=== PATIENT | male | born 1995 | race Caucasian/White ===

== ENCOUNTER 2016-12-17 11:59 | Emergency (ER) | payer OTHER ==
[~2016-12-17] VITALS: Ht 180.3 cm; Wt 65.0 kg
[~2016-12-17 11:59] MED LIST: CEPH500C3 PO
[2016-12-17 12:14] VITALS: BP 114/66; PULSE 63; RESP 16; TEMP 97.7; O2SAT 100
--- NOTE | 2016-12-17 12:32 | PD ---
HPI Chief Complaint: Psychiatric Symptoms Time Seen by Provider: 12:16 Travel History International Travel<30 days: No Contact w/Intl Traveler<30days: No Traveled to known affect area: No History of Present Illness HPI 21-year-old male presents to the emergency room under a Galan act initiated by Police Department. According to galan act, patient texted his girlfriend stating that she would be better off if he was not around. Patient states he meant that she would be better off if he did not see her, not if he was . Denies any suicidal or homicidal ideations. States he found out she was cheating on him and got depressed and angry. She called 911 from the boy's house that she was cheating on him with to have him Galan acted because she did not want to see him. Patient states it was a miscommunication and he just wants " to go to work, make money, and see my kids." Denies hallucinations or delusions. Denies any medical complaints. States he otherwise feels well. Denies alcohol and illicit drug use. Admits to smoking cigarettes. He has medical conditions or daily medications. [facility] Past Medical History Medical History: Denies Significant Hx Social History Alcohol Use: Yes (OCC) Tobacco Use: Yes (02/21 PPD) Substance Use: Yes (POT) Allergies-Medications (Allergen,Severity, Reaction): Coded Allergies: No Known Allergies (Unverified Adverse Reaction, Unknown, 12/17/16) Reported Meds & Prescriptions Reported Meds & Active Scripts Active Review of Systems Except as stated in HPI: all other systems reviewed are Neg Physical Exam Narrative GENERAL: Well-nourished, well-developed male in no acute distress. Afebrile. Ambulatory. SKIN: Focused skin assessment warm/dry. HEAD: Normocephalic. EYES: No scleral icterus. No injection or drainage. NECK: Supple, trachea midline. No JVD or lymphadenopathy. CARDIOVASCULAR: Regular rate and rhythm without murmurs, gallops, or rubs. RESPIRATORY: Breath sounds equal bilaterally. No accessory muscle use. PSYCHIATRIC: No delusional thought processes. No hallucinations. Normal affect. Good mood. Smiling. Data Data Last Documented VS Vital Signs Date Time Temp Pulse Resp B/P (MAP) Pulse Ox O2 Delivery O2 Flow Rate FiO2 12/17/16 12:14 97.7 63 16 114/66 (82) 100 Room Air MDM Medical Decision Making Medical Screen Exam Complete: Yes Emergency Medical Condition: Yes Medical Record Reviewed: Yes Differential Diagnosis Inappropriate Galan act, depression, anxiety, stress, drug-induced mood disorder Narrative Course 21-year-old male presents to the emergency room under Galan act initiated by [employer]. Patient states he has a girlfriend her fighting because she is cheating on him. States he made a text to her that she took to mean that he was suicidal and called 911. States it was a miscommunication that the police department took too far. Patient adamantly denies suicidal or homicidal ideations. States he was initially depressed and angry that she was cheating on him but now feels well and just wants to go to work, make money, and see his kids. Patient is interacting appropriately, smiling. He has a good mood and normal affect. He has no physical manifestations of depression. He is vito to safety. He has never been to the ED before for psych evaluation. Denies any chronic medical conditions, daily medications, or medical complaints. I believe patient was inappropriately Galan acted. I spoke to my attending physician, Dr. Aparicio, who agrees to lift his Galan act. Patient is grateful and would like to leave. He was told to follow up immediately for any thoughts of suicidal or homicidal ideation. He understands and agrees to plan. Diagnosis Primary Impression: Psychiatric exam requested by authority Referrals: Primary Care Physician Additional Instructions: Return immediately to the emergency room for any thoughts of harming self or others. Scripts No Active Prescriptions or Reported Meds Disposition: 01 DISCHARGE HOME Condition: Stable Cori Olvera Dec 17, 2016 12:32
--- NOTE | 2016-12-17 12:35 | PD ---
Physical Exam Date Seen by Provider: Dec 17, 2016 Narrative Galan Act Data Data Last Documented VS Vital Signs Date Time Temp Pulse Resp B/P (MAP) Pulse Ox O2 Delivery O2 Flow Rate FiO2 12/17/16 12:14 97.7 63 16 114/66 (82) 100 Room Air Orders Orders Ed Discharge Order (12/17/16 12:32) MDM Supervised Visit with ANA: Yes Narrative Course I, Dr. Aparicio, have reviewed the advance practice practitioner's documentation and am in agreement, met with the patient face to face, made the diagnosis, and the medical decision making was done by me. *My assessment and Findings: This patient is smiling. He states that he needs to go to work. He is looking for to interacting with his child. He is not suicidal. The Galan Act has been lifted. Please see Cori Olvera PA-C's note for results of laboratory and radiographic evaluation, ED course, final diagnosis and disposition Diagnosis Primary Impression: Psychiatric exam requested by authority Referrals: Primary Care Physician Additional Instruction: Return immediately to the emergency room for any thoughts of harming self or others. Scripts No Active Prescriptions or Reported Meds Disposition: 01 DISCHARGE HOME Condition: Stable Ale Aparicio MD Dec 17, 2016 12:35
== END 2016-12-17 12:47 | disposition home or self-care (01) ==
LOC: NEPD 11:59
DX: Z00.8 Encounter for other general examination (principal); F32.9 Major depressive disorder, single episode, unspecified; F17.210 Nicotine dependence, cigarettes, uncomplicated
CPT/HCPCS: 99282

== ENCOUNTER 2017-01-01 22:43 | Emergency (ER) | payer SELFPAY ==
[~2017-01-01] VITALS: Ht 180.3 cm; Wt 65.0 kg
[2017-01-01 22:46] VITALS: BP 110/54; PULSE 72; RESP 16; TEMP 98.1; O2SAT 100
--- NOTE | 2017-01-02 01:17 | PD ---
HPI Chief Complaint: Psychiatric Symptoms Time Seen by Provider: 01:15 Travel History International Travel<30 days: No Contact w/Intl Traveler<30days: No Traveled to known affect area: No History of Present Illness HPI Patient comes in requesting psychiatric evaluation for suicidal ideations. Patient denies any plans currently, but states he was having thoughts of suicide. Patient reports history of suicide attempt by hanging himself that occurred 1 year ago. Patient denies any other medical complaints or concerns. Denies any chest pain, shortness of breath, headaches, fevers, abdominal pain, loss or change in bowel or bladder, or fevers. Denies anything making symptoms better or worse. PFSH Past Medical History Medical History: Denies Significant Hx Diminished Hearing: No Immunizations Current: Yes Social History Alcohol Use: Yes (OCC) Tobacco Use: Yes (1/2 PPD) Substance Use: Yes (POT) Allergies-Medications (Allergen,Severity, Reaction): Coded Allergies: No Known Allergies (Unverified Adverse Reaction, Unknown, 01/01/17) Reported Meds & Prescriptions Reported Meds & Active Scripts Active No Active Prescriptions or Reported Medications Review of Systems Except as stated in HPI: all other systems reviewed are Neg Physical Exam Narrative GENERAL: Well-developed, well nourished, in no acute distress, and non-ill appearing. Smiling and cheerful on exam. SKIN: Focused skin assessment warm and dry. HEAD: Atraumatic. Normocephalic. EYES: Pupils equal and round. EOMI. No scleral icterus. No injection or drainage. ENT: No nasal bleeding or discharge. Mucous membranes pink and moist. NECK: Trachea midline. Supple. No nuclear rigidity. CARDIOVASCULAR: Regular rate and rhythm. No murmur appreciated. RESPIRATORY: No accessory muscle use. No respiratory distress. Clear to auscultation. Breath sounds equal bilaterally. MUSCULOSKELETAL: No obvious deformities. No clubbing. No cyanosis. No edema. Full range of motion. NEUROLOGICAL: Awake and alert. No obvious cranial nerve deficits. Motor grossly within normal limits. Normal speech. PSYCHIATRIC: Appropriate mood and affect; insight and judgment normal. Data Data Last Documented VS Vital Signs Date Time Temp Pulse Resp B/P (MAP) Pulse Ox O2 Delivery O2 Flow Rate FiO2 01/01/17 22:46 98.1 72 16 110/54 (72) 100 Orders Orders Complete Blood Count With Diff (01/02/17 01:07) Comprehensive Metabolic Panel (01/02/17 01:07) Psych Screen (01/02/17 01:07) Drug Screen, Random Urine (01/02/17 01:07) Alcohol (Ethanol) (01/02/17 01:07) Salicylates (Aspirin) (01/02/17 01:07) Tylenol (Acetaminophen) (01/02/17 01:07) Labs Laboratory Tests Test 01/02/17 01:40 White Blood Count 8.9 TH/MM3 Red Blood Count 4.31 MIL/MM3 Hemoglobin 13.1 GM/DL Hematocrit 38.0 % Mean Corpuscular Volume 88.0 FL Mean Corpuscular Hemoglobin 30.4 PG Mean Corpuscular Hemoglobin Concent 34.6 % Red Cell Distribution Width 14.0 % Platelet Count 228 TH/MM3 Mean Platelet Volume 7.3 FL Neutrophils (%) (Auto) 50.3 % Lymphocytes (%) (Auto) 34.5 % Monocytes (%) (Auto) 11.7 % Eosinophils (%) (Auto) 2.8 % Basophils (%) (Auto) 0.7 % Neutrophils # (Auto) 4.4 TH/MM3 Lymphocytes # (Auto) 3.1 TH/MM3 Monocytes # (Auto) 1.0 TH/MM3 Eosinophils # (Auto) 0.2 TH/MM3 Basophils # (Auto) 0.1 TH/MM3 CBC Comment DIFF FINAL Differential Comment Blood Urea Nitrogen 12 MG/DL Creatinine 0.88 MG/DL Random Glucose 94 MG/DL Total Protein 6.2 GM/DL Albumin 3.5 GM/DL Calcium Level 8.4 MG/DL Alkaline Phosphatase 57 U/L Aspartate Amino Transf (AST/SGOT) 17 U/L Alanine Aminotransferase (ALT/SGPT) 24 U/L Total Bilirubin 0.5 MG/DL Sodium Level 140 MEQ/L Potassium Level 3.8 MEQ/L Chloride Level 107 MEQ/L Carbon Dioxide Level 24.2 MEQ/L Anion Gap 9 MEQ/L Estimat Glomerular Filtration Rate 109 ML/MIN Salicylates Level 3.4 MG/DL Acetaminophen Level LESS THAN 2.0 MCG/ML Ethyl Alcohol Level LESS THAN 3 MG/DL MDM Medical Decision Making Medical Screen Exam Complete: Yes Emergency Medical Condition: Yes Differential Diagnosis Homicidal, suicidal, homeless, metabolic disturbance, substance abuse, alcohol intoxication, other Narrative Course Patient was seen and examined. Labs were obtained and reviewed with the exception of urine drug screen has not been collected yet. Patient medically cleared for further treatment and evaluation by psych. Final disposition per psych. Diagnosis Primary Impression: Medical clearance for psychiatric admission Scripts No Active Prescriptions or Reported Meds Condition: Sarmad Garzon Jan 02, 2017 01:17
[2017-01-02 02:02] LABS: AUTOMATED NEUTROPHIL # 4.4 TH/MM3 (1.8-7.7); BASOPHIL # 0.1 TH/MM3 (0-0.2); BASOPHIL % 0.7 % (0.0-2.0); EOSINOPHIL # 0.2 TH/MM3 (0-0.4); EOSINOPHIL % 2.8 % (0.0-4.0); HEMO FLAGS DIFF FINAL; LYMPH % 34.5 % (9.0-44.0); LYMPHOCYTE # 3.1 TH/MM3 (1.0-4.8); MEAN CORPUSCULAR HEMOGLOBIN 30.4 PG (27.0-34.0); MEAN CORPUSCULAR HGB CONC 34.6 % (32.0-36.0); MONO % 11.7 % (0.0-8.0); NEUT % 50.3 % (16.0-70.0); PLATELET COUNT 228 TH/MM3 (150-450); RED BLOOD COUNT 4.31 MIL/MM3 (4.50-5.90); WHITE BLOOD COUNT 8.9 TH/MM3 (4.0-11.0)
[2017-01-02 02:27] LABS: ACETAMINOPHEN LESS THAN 2.0 MCG/ML (10.0-30.0); ALT (GPT) 24 U/L (12-78); ANION GAP 9 MEQ/L (5-15); AST (GOT) 17 U/L (15-37); BICARBONATE 24.2 MEQ/L (21.0-32.0); BLOOD UREA NITROGEN 12 MG/DL (7-18); CHLORIDE 107 MEQ/L (98-107); GLOMERULAR FILTRATION RATE 109 ML/MIN (>89); POTASSIUM 3.8 MEQ/L (3.5-5.1); SODIUM (NA) 140 MEQ/L (136-145)
[2017-01-02 02:29] LABS: ALKALINE PHOSPHATASE 57 U/L (45-117); TOTAL BILIRUBIN ADULT 0.5 MG/DL (0.2-1.0)
[2017-01-02 02:31] LABS: ALCOHOL LESS THAN 3 MG/DL (0-5)
[2017-01-02 04:30] VITALS: BP 117/70; PULSE 74; RESP 16; O2SAT 100
== END 2017-01-02 06:20 | disposition home or self-care (01) ==
LOC: NEPD 22:43
DX: Z00.8 Encounter for other general examination (principal); R45.851 Suicidal ideations; F17.210 Nicotine dependence, cigarettes, uncomplicated
CPT/HCPCS: 80053; 80307; 85025; 99283